=== PATIENT | female | born 1990 | race Caucasian/White ===

== ENCOUNTER 2025-07-05 13:52 | Emergency (ER) | payer OTHER, SELFPAY ==
[2025-07-05] VITALS (11 sets, daily range): BP systolic 115–124; BP diastolic 64–89; PULSE 75–114; RESP 17–20; TEMP 36.6; O2SAT 94–98
--- NOTE | ~2025-07-05 | CT_ITS ---
EXAMINATION: CTA chest PE protocol DATE: 07/05/2025 15:29 INDICATION: Rule out PE TECHNIQUE: Computed tomography angiography (CTA) of the chest was performed with 100 mL Omnipaque-350 intravenous contrast timed to evaluate the pulmonary arteries. Coronal maximum intensity projection 3D-reconstructions were created by the technologist. The dose-length product was 667.94 mGy-cm. COMPARISON: None. FINDINGS: Exam somewhat limited with contrast concentrated in the left side or aorta; no central large pulmonary emboli. Lungs are clear. Heart size normal. No thoracic aortic aneurysm or dissection. No significant pericardial effusion or bulky lymphadenopathy. No acute process seen in the visualized portions of the upper abdomen or extrathoracic soft tissues. The bones appear intact. IMPRESSION: No central or large pulmonary emboli. Reviewed, dictated and finalized at location A. INSTALLER
--- NOTE | ~2025-07-05 | XR_ITS ---
EXAMINATION: XR chest 1V portable COMPARISON: No comparisons available. HISTORY: Chest pain FINDINGS: The lungs are clear, no effusion. No pneumothorax. Heart is normal size. Mediastinal and hilar contours are within normal limits. Bony thorax no acute abnormality. Miscellaneous: None Impression: No acute cardiopulmonary abnormality. Reviewed, dictated and finalized at location P. CAL OFFICE TECHNOLOGY INSTRUCTOR Impression: No acute cardiopulmonary abnormality.
--- NOTE | 2025-07-05 13:58 | ECG_ITS ---
Test Date: 2025-07-05 13:58:44 Measurements Intervals [place] Rate: 97 P: 68 NM: 163 QRS: 93 QRSD: 96 T: 45 QT: 355 QTc: 453 Interpretive Statements SINUS RHYTHM BORDERLINE RIGHT AXIS DEVIATION [QRS AXIS > 90] No previous ECG available for comparison Electronically Signed On 07-05-2025 18:10:11 TOUCHER UP by Yudi Bills M.D.
[2025-07-05] MEDS: MAG HYDROX/ALUMINUM HYD/SIMETH 30 ML, PHENobarb/HYOSCY/ATROPINE/SCOP 32.4 MG, LIDOCAINE... PO (14:16)
[2025-07-05 14:34] LABS: Hematocrit 34.1 % (35.0-49.0); Hemoglobin 10.9 g/dL (12.0-15.0); Immature Granulocyte Percent A 0.1 % (0.0-0.0); Lymphocytes Absolute Auto 1.98 K/mm3 (1.10-4.50); Mean Corpuscular HGB Conc 32.0 g/dL (32-36); Mean Corpuscular Hemoglobin 29.1 pg (27.0-31.0); Mean Corpuscular Volume 90.9 fL (78.0-102.0); Nucleated Red Blood Cells Absolute Auto 0.00 K/mm3 (0.00-0.00); Nucleated Red Blood Cells Perc 0.0 % (0-0.0); Platelet Count Result 384 K/mm3 (150-420); Red Blood Count 3.75 M/mm3 (4.20-5.40); White Blood Count 7.0 K/mm3 (4.8-10.8)
[2025-07-05 14:53] LABS: Alanine Aminotransferase 25 U/L (6-35); Albumin Level 4.5 g/dL (3.5-5.1); Alkaline Phosphatase 82 U/L (38-126); Anion Gap 7 mmol/L (4-12); Aspartate Amino Transferase 26 U/L (14-36); Blood Urea Nitrogen 12 mg/dL (7-17); Calcium 8.8 mg/dL (8.4-10.2); Carbon Dioxide 26 mmol/L (22-30); Chloride 108 mmol/L (98-107); Estimated CRCL calculation 113 ml/min; Estimated Glomerular Filt Rate > 60; Glucose 102 mg/dL (65-110); Osmolality Calculated 291 mOsm/kg (285-295); Potassium 3.8 mmol/L (3.4-5.0); Sodium 141 mmol/L (137-145); Total Protein 7.4 g/dL (6.3-8.2)
--- OUTSIDE RECORDS SUMMARY | 2025-07-05 15:00 | XMS_ITS | Patient Health Record ---
Author Organization [facility] Address [address] [place], [place] [id number] Care Team Providers Care Lining Mechanic Name Role Phone Micaela Rowley Unavailable Allergies No Known Allergies Reason For Referral No Information Medications Medication SIG (Take, Route, Frequency, Duration) Notes Start Date End Date Status Azithromycin 500 MG Tablet 1 tablet Orally once; Duration: 1 days 04/23/2024 Active miSOPROStol 200 MCG Tablet [address] 3 tablets vaginally one time. If no bleeding happens, place 3 tablets vaginally 24 hours after last dose; Duration: 1 day 04/23/2024 Activ e Social History Tobacco Use: Social History Observation Description Date Details (start date - stop date) Never Smoker NA - NA Social History TOBACCO USE Social Info Question Answer Notes TOBACCO USE - Are you a: never Tobacco user Drug/Alcohol: Social Info Question Answer Notes Alcohol Screen Did you have a drink containing alcohol in the past year? Yes How often did you have a drink containing alcohol in the past year? Monthly or less (1 point) How many drinks did you have on a typical day when you were drinking in the past year? 1 or 2 (0 points) Points 1 Interpretation Negative Additional Details Category Social Info Options Details Miscellaneous: Marital status Caffeine: 1 Cup of Coffee Daily Exercise: Nothing Regular Drug/Alcohol: Illicit Drug Use no Plan Of Treatment No Information Insurance Providers Payer Name Payer Address Payer Phone Subscriber Number Group Number Insured Name Patient Relationship to Insured Coverage Start Date Coverage End Date [employer] [address] ABRAHMA YOUNGER, RAYMUNDO [id number] [phone] [id number] Bryn Qureshi Spouse - patient is the spouse of the insured Medical (General) History Medical History History ICD Code None Hospitalization History Reason Date(Month/Year) Child
--- OUTSIDE RECORDS SUMMARY | 2025-07-05 15:00 | XMS_ITS | Encounter Summary ---
Author Organization [facility] Address [address] [place] [address] Phone Care Team Providers Care Roller Printing Supervisor Name Role Phone Provider, Unknown Primary Care Provider Unavaila ble Provider, None Primary Care Provider Unavailabl Marietta Haile MD Primary Care Provider Encounter Details Date Type Department Care Team (Late st Contact Info) Description 03/31/2024 Transcribe Orders [facility] Scheduling [address] [place] [address] Velma Faulnker APRN, CNM [address] [place] [id number] Social History Tobacco Use Types Packs/Day Years Used Date Smoking Tobacco: Never Assessed Comments Unknown Sex and Gender Information Value Date Recorded Sex Assigned at Not on file Legal Sex Female 1:58 PM CDT Gender Identity Not on file Sexual Orientation Not on file documented as of this encounter Plan of Treatment Not on file documented as of this encounter Visit Diagnoses Not on filedocumented in this encounter Additional Health Concerns Infection Onset Date Last Indicated Resolved Time COVID - 19 06/03/2024 06/03/2024 06/03/2024 11:3 9 PM CDT documented as of this encounter Care Teams Roller Printing Supervisor Relationship Specialty Start Date End Date Provider, Unknown UNKNOWN PCP - General 05/25/20 06/01/24 Provider, None [place] PCP - General 06/02/24 06/03/24 Marietta Donato MD [address] [place] [address] PCP - General Obstetrics & Gynecology 06/04/24 documented as of this encounter
--- OUTSIDE RECORDS SUMMARY | 2025-07-05 15:00 | XMS_ITS | Clinical Summary ---
Author Organization [facility] Address [address] [place] [address] Phone Care Team Providers Care Rafter Cutting Machine Operator Name Role Phone Marietta Donato MD Primary Care Provider Allergies No known active allergies Medications Vit-Fe Fumarate-FA ( VITAMIN PO) Take 1 Tab by mouth daily. Active Active Problems Problem Noted Date Diagnosed Date Sepsis 06/04/2024 Anemia 06/04/2024 S/P D&C (status post dilation and curettage) 05/2024 Incomplete 05/31/2024 Social History Tobacco Use Types Packs/Day Years Used Date Smoking Tobacco: Never Smokeless Tobacco: Never Tobacco Cessation:Counseling Given: Not Answered Alcohol Use Standard Drinks/Week Comments Yes 0 (1 standard drink = 0.6 oz pur e alcohol) occasionally [employer] Answer Date Recorded In the past 12 months has [employer], oil, or water [employer] threatened to shut off services in your home? No 06/04/2024 Social Connection and Isolation Panel Answer Date Recorded In a typical week, how many times do you talk on the phone with family, friends, or neighbors? Never 06/04/2024 How often do you get together with friends or re latives? Never 06/04/2024 How often do you attend faith or gnosticism serv ices? Never 06/04/2024 Do you belong to any clubs o r organizations such as faith groups, unions, fraternal or athletic groups, or school groups? No 06/04/2024 How often do you attend meet ings of the clubs or organizations you belong to? Never 06/04/2024 Are you , , di vorced, , never , or living with a partner? 06/04/2024 AUDIT-C Answer Date Recorded Q1: How often do you have a drink containing alcohol? Never 06/04/2024 Q2: How many drinks containi ng alcohol do you have on a typical day when you are drinking? Patient does not drink Q3: How often do you have si x or more drinks on one occasion? Never 06/04/2024 Overall Financial Resource Strain (CARDIA) Answe r Date Recorded How hard is it for you to pa y for the very basics like food, housing, medical care, and heating? Not hard at all 06/04/2024 [facility] Occupat ional [facility] - Occupational Stress Questionnaire Answer Date Recorded Do you feel stress - tense, restless, nervous, or anxious, or unable to sleep at night because your mind is troubled all the time - these days? Only a little 06/04/2024 Exercise Vital Sign Answer Date Recorde d On average, how many days pe r week do you engage in moderate to strenuous exercise (like a brisk walk)? 3 days 06/04/2024 On average, how many minutes do you engage in exercise at this level? 30 min 06/04/2024 Hunger Vital Sign Answer Date Recorded Within the past 12 months, y ou worried that your food would run out before you got the money to buy more. Never true 06/04/20 24 Within the past 12 months, t he food you bought just didn't last and you didn't have money to get more. Never true 06/04/2024 PRAPARE - Transportation Answer Date Re corded In the past 12 months, has l ack of transportation kept you from medical appointments or from getting medications? No 05/25 In the past 12 months, has l ack of transportation kept you from meetings, work, or from getting things needed for daily living? No 06/04/2024 Housing Stability Vital Sign Answer David e Recorded In the last 12 months, was t here a time when you were not able to pay the mortgage or rent on time? No 06/04/2024 In the past 12 months, how m any times have you moved where you were living? 0 06/04/2024 At any time in the past 12 m [facility], were you homeless or living in a care home (including now)? No 06/04/2024 Sexually Active Control Partners Comments Yes None Male Comments Unknown Sex and Gender Information Value Date Recorded Sex Assigned at Not on file Legal Sex Female 1:58 PM CDT Gender Identity Not on file Sexual Orientation Not on file Last Filed Vital Signs Vital Sign Reading Time Taken Comments Blood Pressure 125/68 12/11/2024 6:50 PM CDT Pulse 120 12/11/2024 6:50 PM CDT Temperature 36.2 C (97.2 F) 12/11/2024 6:50 PM CDT Respiratory Rate 16 12/11/2024 6:50 PM CDT Oxygen Saturation 98% 12/11/2024 6:50 PM CDT Inhaled Oxygen Concentration - - Weight 90.7 kg (200 lb) 12/11/2024 6:50 PM CDT Height 162.6 cm (5' 4) 12/11/2024 6:50 PM CDT Body Mass Index 34.33 12/11/2024 6:50 PM CDT Plan of Treatment Health Maintenance Due Date Last Done Comments Hepatitis C Virus (HCV) Screening 1991 TdaP Immunization 1991 Hepatitis B Immunization (1 of 3 - 19+ 3-dose series) 11/04/2010 Human Papillomavirus (HPV) Immunization (1 - 3-dose SCDM series) 11/04/2018 Influenza Immunization (#1) 2025 SARS-COV-2 Immunization ( season) 2025 Pap Smear 05/31/2027 05/31/2024 Cervical Cancer Screening (CCS) 05/31/2029 HPV/Cotest 05/31/2029 05/31/2024 Respiratory Syncytial Virus (RSV) Immunization (Adult) (1 - 1-dose 75+ series) 11/04/2066 Meningococcal Immunization (ACWY) Aged Out No longer eligible based on patient's age to complete this topic Pneumococcal Immunization Combined Aged Out No longer eligible based on patient's age to complete this topic Rotavirus Immunization Aged Out No lo nger eligible based on patient's age to complete this topic Procedures Procedure Name Priority Date/Time Associated Diagnosis Comments HUMAN PAPILLOMA VIRUS (HPV) Routine 05/31/2024 3:11 PM CDT Encounter for screening for human papillomavirus (HPV) PATHOLOGY CYTOLOGY DELICATESSEN STORE MANAGER Routine 05/31/2024 3:11 PM CDT Pap smear for cervical cancer screening from Last 3 Months or Most Recently Relevant to Health Maintenance Results * PATHOLOGY CYTOLOGY DELICATESSEN STORE MANAGER (05/31/2024 3:11 PM CDT) SPECIMEN ADEQUACY A scant cellular component is noted. Endocervical/transf ormation zone component is absent. Partially obscuring hemorrhagic debris noted. 06/09/2024 1:55 PM CDT [facility] DESCRIPTIVE DIAGNOSIS NEGATIVE FOR INTRAEPITHELIAL LESIONS OR MALIGNANCY. 06/09/2024 1:55 PM CDT [facility] at 1355 CDT OTHER FINDINGS Marked, acute inflammation noted. 06/09/2024 1:55 PM CDT [facility] Automated Examination This sample was not evaluated by the automated imaging and review system ([employer]in[employer] Imaging System, [employer], [place], [place] due to technical and / or biologic factor(s). The case was screened, reviewed, and finalized by a dry goods clerk and / or pathologist. 06/09/2024 1:55 PM CDT [facility] Disclaimer The PAP smear is a screening test designed to detect cancerous or precancerous cells of the uterine cervix. It is one of the best means available for detection of cervical cancer but still carries an inherent false-negative rate. The consequences of a false-negative PAP result can be minimized by adhering to current screening guidelines. The following are general guidelines recommended by the ACS, ASCP, ASCCP, and ACOG: PAP testing is recommended every three years for women 21-29, Co-Testing, a PAP test in conjunction with an HPV (Human Papillomavirus) test for women ages 30-65, and no PAP or HPV testing for women under the age of 21 or older than 65 unless clinically indicated. 06/09/2024 1:55 PM CDT [facility] Case Report Gynecologic Cytology Report Case: [id number] Authorizing Provider: Marietta Donato, Collected: 05/31/2024 03:11 PM Ordering Location: [facility] Medical Received: 05/31/2024 03:11 PM Group - Obstetrics & Gynecology [facility] Screen: Juan Jose Aggarwal Specimen: TP Screen, Cervix/Endocervix 06/09/2024 1:55 PM CDT [facility] Other CERVIX UTERI STRUCTURE / Unknown Non-Phlebotomy Collection / Unknown 05/31/2024 3:11 PM CDT 05/31/2024 3:11 PM CDT us Marietta Donato MD PATHOLOGY/CYTOLOGY ORD ERABLES Final Result [facility] [address] [place] [address], * HUMAN PAPILLOMA VIRUS (HPV) (05/31/2024 3:11 PM CDT) HPV TYPE 16 NEGATIVE NEGATIVE 06/02/2024 4:02 PM CDT [facility] Comment: A negative high-risk HPV result does not exclude the possibility of future cytologic HSIL or underlying CIN2-3 or cancer. The presence of PCR inhibitors may cause false negative or invalid results. If concentrations of whole blood in the sample exceed 10% (dark red or brown coloration) in PreservCyt solution, there is a likelihood of obtaining a false-negative result. HPV TYPE 18 NEGATIVE NEGATIVE 06/02/2024 4:02 PM CDT [facility] Comment: A negative high-risk HPV result does not exclude the possibility of future cytologic HSIL or underlying CIN2-3 or cancer. The presence of PCR inhibitors may cause false negative or invalid results. If concentrations of whole blood in the sample exceed 10% (dark red or brown coloration) in PreservCyt solution, there is a likelihood of obtaining a false-negative result. HPV OTHER HIGH RISK TYPES, PCR NEGATIVE NEGATIVE 06/02/2024 4:02 PM CDT [facility] Comment: The following Other High Risk types were not detected: 31, 33, 35, 39, 45, 51, 52, 56, 58, 59, 66, and 68. A negative high-risk HPV result does not exclude the possibility of future cytologic HSIL or underlying CIN2-3 or cancer. The presence of PCR inhibitors may cause false negative or invalid results. If concentrations of whole blood in the sample exceed 10% (dark red or brown coloration) in PreservCyt solution, there is a likelihood of obtaining a false-negative result. HPV ORDER BE USED FOR SCREENING OR DIAGNOSTIC SCREENING 06/02/2024 4:02 PM CDT [facility] Other Non-Phlebotomy Collection / Unknown 05/31/2024 3:11 PM CDT 05/31/2024 3:11 PM CDT Narrative [facility] - 06/02/2024 4:02 PM CDT This test was performed using PAULA 5800 Real Time PCR. us Marietta Donato MD LAB SEND OUTS Final Result Performing Organization Address City/State/[facility] Co de Phone Number [facility] [address] [place] [address], from Last 3 Months or Most Recently Relevant to Health Maintenance Insurance [employer] Advance Directives * Full Code (Latest Code Status on File) Date Activated Date Inactivated Comments 06/04/2024 6:50 AM CPR-Full [place]us tment: FULL ARREST: Attempt Resuscitation/CPR wit intubation and mechanical ventilation. PRE-ARREST: Use entire range of life support measures to stabilize the patient. Care Teams Rafter Cutting Machine Operator Relationship Specialty Start Date End Date Marietta Donato MD [address] [place] [address] PCP - General Obstetrics & Gynecology 06/04/24
[2025-07-05 15:05] LABS: Troponin I < 0.012 ng/mL (0.000-0.034)
--- NOTE | 2025-07-05 15:56 | ED_ITS ---
HPI - Chest Pain General Chief Complaint: Chest Pain Stated Complaint: chest pain Time Seen by Provider: 07/05/25 13:55 Source: patient Mode of arrival: ambulatory Limitations: no limitations History of Present Illness Onset (ago): hour(s) Timing of current episode: episodic Prior episodes: No Onset: during rest Pain location: epigastric Pain radiation: none Severity: mild Pain scale (0-10): 2 Quality: aching Relieving factors: nothing Exacerbating factors: nothing Risk Factors Coronary artery disease risk factors: none Related Data Home Medications ?Medication ?Instructions ?Recorded ?Confirmed ?Last Taken ?Type No Home Medications 07/05/25 07/05/25 U nknown History Allergies Allergy/AdvReac Type Severity Reaction Status Date / Time No Known Allergies Allergy Verified 07/05/25 14:08 Review of Systems 2 Review of Systems: All systems reviewed & are unremarkable except as noted in HPI and below Exam 2 Const: General: healthy appearing and no acute distress Nutritional Appearance: well nourished and obese Orientation/consciousness: patient oriented x3 Limitations: no limitations Eyes: Conjunctivae: conjunctivae normal Pupils: Equal, round and reactive pupils present Neck: Neck: normal visual inspection, no lymphadenopathy and no meningeal signs Chest: Chest palpation & inspection: normal inspection of the chest Resp: Effort & Inspection: normal respiratory effort Auscultation: clear to auscultation bilaterally Cardio: Rate: regular rate Rhythm: regular rhythm GI: GI Palp: Yes Soft to palpation and Yes Tenderness to palpation present (GI) (Epigastric) : General: Yes bladder normal to palpation Skin: General skin exam: normal color Rashes: no rashes Neuro: General: patient oriented x3, moves all extremities, no meningeal signs and no focal motor deficits Extrem: General: normal to inspection, no clubbing, cyanosis or edema and no pedal edema Course Course Emergency Course: Medical decision making narrative: The patient was evaluated myself in the emergency department. History obtained from the patient who is an independent historian and physical exam performed in witnessed by nurse. EKG performed shows no acute ST or T elevations or abnormalities labs performed were within normal limits patient did receive a GI cocktail and symptoms have been stable rates her pain at 2/10 patient appears comfortable in no acute distress troponins were negative and D-dimer was performed was elevated and CTA performed which showed no pulmonary embolism. X- ray was with no acute cardiopulmonary abnormalities. Repeat assessment: Patient is doing well on repeat exam with no acute distress Symptoms have slightly improved since arrival to the ED Repeat vitals are stable Patient agrees with discussion and after shared medical decision decision making and agrees with discharge. All questions answered to the patient's satisfaction Follow-up with primary within 3 to 5 days Patient provided with strict return precautions and return to the ED if any worsening symptoms. Vital Signs Vital signs: Vital Signs Temperature 36.6 C 07/05/25 13:52 Pulse Rate 96 07/05/25 13:52 Respiratory Rate 18 07/05/25 13:52 Blood Pressure 116/64 07/05/25 13:52 Pulse Oximetry 97 07/05/25 13:52 Oxygen Delivery Room Air 07/05/25 13:52 Temperature 36.6 C 07/05/25 13:52 Pulse Rate 98 07/05/25 15:47 Respiratory Rate 20 07/05/25 15:47 Blood Pressure 115/87 07/05/25 15:47 Pulse Oximetry 98 07/05/25 15:47 Oxygen Delivery Room Air 07/05/25 13:52 MDM - Chest Pain Lab Data 07/05/25 14:29 07/05/25 14:29 Labs: Lab Results 07/05/25 Range/Units 14:29 WBC 7.0 (4.8-10.8) K/mm3 RBC 3.75 L (4.20-5.40) M/mm3 Hgb 10.9 L (12.0-15.0) g/dL Hct 34.1 L (35.0-49.0) % MCV 90.9 (78.0-102.0) fL MCH 29.1 (27.0-31.0) pg MCHC 32.0 (32-36) g/dL RDW 13.4 (11.6-14.4) % Plt Count 384 (150-420) K/mm3 MPV 8.6 L (9.2-11.8) fl Immature Gran % (Auto) 0.1 H (0.0-0.0) % Neut % (Auto) 62.3 (50.0-70.0) % Lymph % (Auto) 28.2 (18.0-42.0) % [place] % (Auto) 7.3 (2.0-11.0) % Eos % (Auto) 1.4 (1.0-6.0) % Baso % (Auto) 0.7 (0.0-1.0) % Lymph # (Auto) 1.98 (1.10-4.50) K/mm3 [place] # (Auto) 0.51 (0.10-0.90) K/mm3 Eos # (Auto) 0.10 (0.02-0.50) K/mm3 Baso # (Auto) 0.05 (0.00-0.10) K/mm3 Abs Immat Gran (auto) 0.01 H (0.00-0.00) K/mm3 Absolute Neuts (auto) 4.37 (1.70-7.20) K/mm3 Absolute Nucleated RBC 0.00 (0.00-0.00) K/mm3 Nucleated RBC % 0.0 (0-0.0) % D-Dimer 0.74 H (0.19-0.50) mg/L Sodium 141 (137-145) mmol/L Potassium 3.8 (3.4-5.0) mmol/L Chloride 108 H (98-107) mmol/L Carbon Dioxide 26 (22-30) mmol/L Anion Gap 7 (4-12) mmol/L BUN 12 (7-17) mg/dL Creatinine 0.71 (0.7-1.0) mg/dL Estim Creat Clear Calc 113 ml/min Estimated GFR > 60 (59 - ) Glucose 102 (65-110) mg/dL Calculated Osmolality 291 (285-295) mOsm/kg Calcium 8.8 (8.4-10.2) mg/dL Total Bilirubin 1.1 (0.2-1.3) mg/dL AST 26 (14-36) U/L ALT 25 (6-35) U/L Alkaline Phosphatase 82 (38-126) U/L Troponin I < 0.012 (0.000-0.034) ng/mL Total Protein 7.4 (6.3-8.2) g/dL Albumin 4.5 (3.5-5.1) g/dL Critical Care Time Critical Care Time Critical Care Time: No Discharge Plan Discharge Clinical Impression: Atypical chest pain Patient Disposition: Home Condition: Stable Instructions: Antibiotic Form, Chest Wall Pain (ED) Additional Instructions: Advised patient to follow-up with primary care physician for further evaluation and symptoms. Patient Language: Kenyan Prescriptions: No Action No Home Medications Follow-up/Referrals: PHYSICIAN,PURCHASING SUPERVISOR [Primary Care Provider, Internal Medicine] Time of Disposition: 16:01
[2025-07-12 13:02] LABS: Bilirubin,Total 0.2 mg/dL (0.2-1.3)
== END 2025-07-05 16:10 | disposition home or self-care (01) ==
PROVIDERS: Emergency Provider Emergency Medicine; Referring Provider Internal Medicine
DX: R07.89 Other chest pain (principal)
CPT/HCPCS: 36415; 71045; 71275; 80053; 84484; 85025; 85380; 93005; 99284; A9270; Q9967